=== PATIENT | male | born 1960 | race Two or more races ===

== ENCOUNTER → 2022-12-11 | Day surgery (SDC) | payer OTHER ==
[~2022-12-11] VITALS: Ht 182.9 cm; Wt 103.4 kg
[~2022-12-11] MED LIST: AMLO5TAB88 PO; ASPI-1497 PO; CLOP75TA33 PO; LISI2.5T47 PO; ROSU20TA2 PO
== END | disposition home or self-care (01) ==
LOC: CCL 11:14
PROVIDERS: ATTEND Specialist
DX: I25.10 Atherosclerotic heart disease of native coronary artery without angina pectoris (principal); Z53.8 Procedure and treatment not carried out for other reasons; I10 Essential (primary) hypertension; E78.5 Hyperlipidemia, unspecified; Z87.891 Personal history of nicotine dependence; Z79.82 Long term (current) use of aspirin; Z79.899 Other long term (current) drug therapy; Z98.890 Other specified postprocedural states
CPT/HCPCS: Z7610 ×4